=== PATIENT | female | born 1940 | race Caucasian/White ===

== ENCOUNTER 2016-08-03 22:23 | Emergency (ER) | payer OTHER, MEDICARE ==
[~2016-08-03 22:23] MED LIST: HYDROCHLOROTHIA25 M1 PO; LEVOTHYROXINE88 MCG PO; MACROBID 100 M100 MG PO; NAPROXEN375 M1 PO; PANTOPRAZOLE SO40 M1 PO; PYRIDIUM100 M1 PO; SIMVASTATIN10 M1 PO; VALSARTAN80 M1 PO
--- NOTE | 2016-08-03 23:01 | ED GI/GU/ABDOMINAL COMPLAINT ---
History of Present Illness General Chief Complaint: Abdominal Pain/Flank Pain Stated Complaint: "LLQ ABD CHRISTY CHOWDHURY" Source: patient, family Exam Limitations: no limitations Vital Signs & Intake/Output Vital Signs & Intake/Output Vital Signs Date Time Temp Pulse Resp B/P Pulse O2 O2 Flow FiO2 Ox Delivery Rate 08/04 0026 74 18 154/72 95 Room Air 08/03 2228 97.9 86 18 166/98 99 Room Air ED Intake and Output 08/04 0000 08/03 1200 Intake Total 0 Output Total Balance 0 Intake, Oral 0 Allergies Coded Allergies: NO KNOWN ALLERGIES (03/08/14) Reconcile Medications Hydrochlorothiazide 25 MG TABLET 0.5 TAB PO DAILY WATER PILL (Reported) Levothyroxine Sodium 88 MCG TABLET 1 TAB PO DAILY AC THYROID (Reported) Naproxen 375 MG TABLET.DR 1 TAB PO BID ANTI-INFLAMMATORY (Reported) Nitrofurantoin Monohyd/M-Cryst (Macrobid 100 MG Capsule) 100 MG CAPSULE 1 CAP PO BID UTI Pantoprazole Sodium 40 MG TABLET.DR 1 TAB PO DAILY GI (Reported) Phenazopyridine HCl (Pyridium) 100 MG TABLET 1 TAB PO TID UTI Please take after meals Simvastatin (Simvastatin*) 10 MG TABLET 1 TAB PO QPM CHOLESTEROL (Reported) Valsartan 80 MG TABLET 1 TAB PO DAILY HEART (Reported) Triage Note: TRIAGE; PT TO ED WITH LLQ PAIN SINCE THIS AM. STATES SHE WOKE UP WITH SEVERE DIARRHEA, USED PEPTO BISMOL AND DIARRHEA CAME BACK. STATES USED MORE AT 9PM TONIGHT. PT STATES SHE HAS HAD THE LT SIDED PAIN ALL DAY LONG. C/O +N/D, DENIES ANY VOMITING. ALSO C/O PADILLA. PT REPORTS HAVING HEARTBURN WELL. DENIES ANY CP/SOB. EKG ORDERED. Triage Nurses Notes Reviewed? yes ? N Is pt currently ? No Onset: Abrupt Duration: constant Timing: recent history Quality/Severity: sharpness, severe, stabbing Severity Numbers: 7 Location: left lower quadrant Radiation: no radiation Activities at Onset: none HPI: Patient is a 76-year-old female with a past medical history of hypertension hypothyroidism overactive bladder and chronic "stomach issues" who presents emergency room with complaints of a remote history of intermittent left lower quadrant pain however patient states last 24 hours the left lower quadrant pain has been persistent in which last night patient had multiple episodes 4 of nonbloody no melena loose watery stool diarrhea production however patient had formed stool today Patient currently complains of left lower quadrant nonradiating abdominal pain Patient is able tolerate by mouth with no change in symptoms. Patient did have steak and potatoes earlier today Patient does have a history of overactive bladder with a nonfunctioning bladder stimulator Patient has no change of urine complaints Patient denies any fever chills back pain chest pain and arm pain jaw pain nausea or vomiting. Patient states that she has a a colonoscopy performed previously with unremarkable findings by Dr. King. (ROSA GUZMÁN) Past History Travel History Traveled to [place] past 21 day No Medical History Any Pertinent Medical History? see below for history Neurological: NONE EENT: NONE Cardiovascular: hypertension, hyperlipidemia Respiratory: NONE Gastrointestinal: NONE Hepatic: NONE Renal: OVERACTIVE BLADDER Musculoskeletal: NONE Psychiatric: NONE Endocrine: NONE Blood Disorders: NONE Cancer(s): breast cancer Surgical History Surgical History: hysterectomy Psychosocial History Who do you live with Family Services at Home None What is your primary language Hebrew Tobacco Use: Never used Family History Hx Contributory? No (ROSA GUZMÁN) Review of Systems Review of Systems Constitutional: Reports: no symptoms. EENTM: Reports: no symptoms. Respiratory: Reports: no symptoms. Cardiovascular: Reports: no symptoms. GI: Reports: see HPI, abdominal pain. Genitourinary: Reports: see HPI. Musculoskeletal: Reports: no symptoms. Skin: Reports: no symptoms. Neurological/Psychological: Reports: no symptoms. Hematologic/Endocrine: Reports: no symptoms. Immunologic/Allergic: Reports: no symptoms. All Other Systems: Reviewed and Negative (ROSA GUZMÁN) Physical Exam Physical Exam General Appearance: no apparent distress, alert, comfortable Gastrointestinal: normal bowel sounds, soft, LEFT LOWER QUADRANT MODERATE POINT TENDERNESS WITH POSITIVE REBOUND TENDERNESS Comments: HEENT: Normal EENT exam, Neck: Supple, no lymphadenopathy, normal range of motion without pain or tenderness Back: Nontender, no CVA tenderness. Cardiovascular: Regular rate and rhythms no murmurs rubs or gallops, normal JVP Respiratory: Chest nontender. No respiratory distress.breath sounds clear to auscultation bilaterally Extremity: No edema, no calf tenderness to palpation, normal and equal pulses. Neuro: Alert oriented x3, motor sensory normal, Skin: No appreciable rash on exposed skin, skin is warm and dry. Psych: Mood and affect is normal, memory and judgment is normal. Core Measures ACS in differential dx? No Severe Sepsis Present: No Septic Shock Present: No (GUNNER AU,ROSA) Progress Differential Diagnosis: AAA, AMI, appendicitis, biliary colic, bowel obstruction , colon cancer, cholecystitis, diverticulitis, ectopic , endometritis, esophageal varices, gastritis, hepatitis, hernia, hemorrhoids, ischemic bowel, inflamm bowel dis, intrauterine , kidney stone, Margret-Ramirez tear, ovarian cyst, ovarian torsion, pancreatitis, PID/cervicitis, peptic ulcer, PUD/ GERD, perforated viscous, SBO, threatened AB, UTI/pyelo Plan of Care: Orders Procedure Date/time Status Add-on Test (ER Only) 08/04 0209 Active CULTURE,URINE 08/04 143 Active URINALYSIS 08/04 014 Complete LIPASE 08/03 231 Complete COMPREHENSIVE METABOLIC PANEL 08/03 231 Complete CBC WITHOUT DIFFERENTIAL 08/03 2317 Complete AMYLASE 08/03 2317 Complete EKG 08/038 Active Laboratory Tests 08/04/16 0144: Urinalysis MOD H, Urine Color STRAW, Urine Clarity CLDY H, Urine pH 6.0, Ur Specific [place] 1.015, Urine Protein TRACE H, Urine Ketones NEG, Urine Nitrite POS H, Urine Bilirubin NEG, Urine Urobilinogen 0.2, Ur Leukocyte Esterase LARGE H, Ur Microscopic SEDIMENT EXAMINED, Urine RBC 5-10 H, Urine WBC > 75 H, Ur Epithelial Cells MOD H, Urine Mucus FEW, Urine Hemoglobin SMALL H, Urine Glucose NEG 08/04/16 0000: Anion Gap 9, Estimated GFR > 60, BUN/Creatinine Ratio 25.6 H, Glucose 96, Calcium 9.4, Total Bilirubin 0.2, AST 14, ALT 27, Alkaline Phosphatase 84, Total Protein 6.7, Albumin 3.7, Globulin 3.0, Albumin/Globulin Ratio 1.2, Amylase 103, Lipase 332 H 08/03/168: CBC w Diff NO MAN DIFF REQ, RBC 2.93 L, MCV 92.6, MCH 29.7, RDW 14.3, MPV 8.4, Gran % 61.5, Lymphocytes % 27.9, Monocytes % 6.5, Eosinophils % 2.9, Basophils % 1.2, Absolute Granulocytes 3.8, Absolute Lymphocytes 1.7, Absolute Monocytes 0.4 , Absolute Eosinophils 0.2, Absolute Basophils 0.1, PUBS MCHC 32.1 L Microbiology 08/04 0144 URINE ROUT: Urine Culture - RECD 08/04/2016 12:20:39 AM reevaluation the patient, patient had no change in pain with 2 mg of morphine which 4 mg of morphine was ordered. Blood work and CT scan currently are pending. Patient had no change in pain with an total of 6 mg of morphine and which patient still requested pain medication and which currently is patient is in CT scan 6 mg of morphine again was ordered however will not be administered till after CT scan is performed and reevaluated patient. I discussed hand off with Dr. Calvillo in which CT scan and disposition is currently pending (ROSA GUZMÁN) Initial ED EKG: SINUS RHYTHM NOTICED 68 BPM WITH [employer] PACEMAKER SPIKES Prior EKG: unchanged Hand-Off Endorsed To: STEPHAN SPARKS,ZAID Swann Endorsed Time: 53 Pending: CT (ROSA GUZMÁN) Diagnostic Imaging: Viewed by Me: CT Scan. Discussed w/RAD: CT Scan. Radiology Impression: PATIENT: ERIK NIEVES PRESENT AGE: 76 PATIENT ACCOUNT NO: [id number] : 40 LOCATION: [facility] ORDERING PHYSICIAN: ROSA AU SERVICE DATE: 08/03/16 EXAM TYPE: CAT - CT ABD & PELVIS W IV CONTRAST EXAMINATION: CT ABDOMEN AND PELVIS WITH CONTRAST CLINICAL INFORMATION: Left lower quadrant pain, diarrhea, rule out diverticulitis COMPARISON: 04/21/2016 TECHNIQUE: Multidetector volumetric imaging was performed of the abdomen and pelvis before and after the IV administration of 95 mL of Optiray 320 intravenous contrast. Sagittal and coronal reformatted images were obtained on the technologist's workstation. DLP: 253.77 mGy-cm. FINDINGS: LUNG BASES: There are redemonstrated tiny left lower lobe lung nodules on image 9/87 and right lower lobe lung nodules on images 10 and 11/87. LIVER, GALLBLADDER, AND BILIARY TREE: The liver is normal in size, shape, and attenuation. No focal hepatic lesion or biliary ductal dilatation is present. The gallbladder is unremarkable with no evidence of radiopaque gallstones, gallbladder wall thickening, or obvious pericholecystic inflammatory changes. PANCREAS: Unremarkable. SPLEEN: Unremarkable. ADRENAL GLANDS: Unremarkable. KIDNEYS AND URETERS: The kidneys demonstrate lobulated contours bilaterally with areas of cortical scarring. There are redemonstrated low- density lesions in the kidneys, the larger of which are consistent with cysts while the smaller lesions are too small to characterize. No hydronephrosis or obstructing calculi bilaterally. BLADDER: Unremarkable. GASTROINTESTINAL TRACT: A small hiatal hernia is noted. There is colonic diverticulosis without additional findings for diverticulitis. No evidence of bowel obstruction. No abnormal bowel wall thickening is seen. The appendix is unremarkable. ABDOMINAL WALL: A stimulator device is present in the left gluteal subcutaneous tissues, with lead extending to the sacrum. LYMPH NODES: Normal. VASCULAR: There is atherosclerotic calcification along the aorta. PELVIC VISCERA: Patient appears status post hysterectomy. A pessary is noted. OSSEOUS STRUCTURES: Degenerative changes are noted in the spine. IMPRESSION: 1. No acute intra-abdominal findings. Colonic diverticulosis without findings for diverticulitis. 2. Small hiatal hernia. 3. Additional chronic findings as described above. DICTATED BY: CHAD DAVID MD DATE/TIME DICTATED:08/04/16116 TERRAZZO LAYER:PRAVIN DATE/TIME TRANSCRIBED:08/04/16116 CONFIDENTIAL, DO NOT COPY WITHOUT APPROPRIATE AUTHORIZATION. <Electronically signed in Other Vendor System> SIGNED BY: CHAD DVAID MD 08/04/16 0128 (STEPHAN SPARKS,ZAID Swann) Departure Departure Condition: Stable Clinical Impression Primary Impression: Abdominal pain Referrals: Monica BORREGO MD (PCP/Family) Departure Forms: Customer Survey General Discharge Information (ROSA GUZMÁN) Departure Disposition: HOME OR SELF CARE PA/IT BUSINESS PROCESS ARCHITECT Co-Sign Statement Statement: ED Attending supervision documentation- [X] I saw and evaluated the patient. I have also reviewed all the pertinent lab results and diagnostic results. I agree with the findings and the plan of care as documented in the PA's/IT BUSINESS PROCESS ARCHITECT's documentation. [X] I have reviewed the ED Record and agree with the PA's/IT BUSINESS PROCESS ARCHITECT's documentation. [] Additions or exceptions (if any) to the PAs/IT BUSINESS PROCESS ARCHITECT's note and plan are summarized below: [] (STEPHAN SPARKS,ZAID Swann)
[2016-08-03 23:42] LABS: ABSOLUTE BASOPHIL COUNT 0.1 /CUMM (0.0-0.2); ABSOLUTE EOSINOPHIL COUNT 0.2 /CUMM (0.0-0.7); ABSOLUTE GRANULOCYTE CT 3.8 /CUMM (1.4-6.5); ABSOLUTE LYMPH COUNT 1.7 /CUMM (1.2-3.4); ABSOLUTE MONOCYTE COUNT 0.4 /CUMM (0.10-0.60); BASOPHIL % 1.2 % (0.0-2.0); EOSINOPHIL % 2.9 % (0-5); GRANULOCYTE % 61.5 % (42.2-75.2); HEMATOCRIT 27.1 % (37-47); MEAN CORPUSCULAR HGB 29.7 PG (27.0-31.0); MEAN CORPUSCULAR HGB CONC 32.1 G/DL (33.0-37.0); MEAN CORPUSCULAR VOLUME 92.6 FL (81.0-99.0); MEAN PLATELET VOLUME 8.4 FL (7.4-10.4); PLATELET COUNT 361 /CUMM (130-400); RBC DISTRIBUTION WIDTH 14.3 % (11.5-14.5); RED BLOOD CELL CT 2.93 /CUMM (4.20-5.40); WHITE BLOOD CELL COUNT 6.1 /CUMM (4.8-10.8)
[2016-08-04 00:26] VITALS: BP 154/72
--- NOTE | 2016-08-04 01:28 | CT SCAN REPORT ---
EXAMINATION: CT ABDOMEN AND PELVIS WITH CONTRAST CLINICAL INFORMATION: Left lower quadrant pain, diarrhea, rule out diverticulitis COMPARISON: 04/21/2016 TECHNIQUE: Multidetector volumetric imaging was performed of the abdomen and pelvis before and after the IV administration of 95 mL of Optiray 320 intravenous contrast. Sagittal and coronal reformatted images were obtained on the technologist's workstation. DLP: 253.77 mGy-cm. FINDINGS: LUNG BASES: There are redemonstrated tiny left lower lobe lung nodules on image 9/87 and right lower lobe lung nodules on images 10 and 11/87. LIVER, GALLBLADDER, AND BILIARY TREE: The liver is normal in size, shape, and attenuation. No focal hepatic lesion or biliary ductal dilatation is present. The gallbladder is unremarkable with no evidence of radiopaque gallstones, gallbladder wall thickening, or obvious pericholecystic inflammatory changes. PANCREAS: Unremarkable. SPLEEN: Unremarkable. ADRENAL GLANDS: Unremarkable. KIDNEYS AND URETERS: The kidneys demonstrate lobulated contours bilaterally with areas of cortical scarring. There are redemonstrated low-density lesions in the kidneys, the larger of which are consistent with cysts while the smaller lesions are too small to characterize. No hydronephrosis or obstructing calculi bilaterally. BLADDER: Unremarkable. GASTROINTESTINAL TRACT: A small hiatal hernia is noted. There is colonic diverticulosis without additional findings for diverticulitis. No evidence of bowel obstruction. No abnormal bowel wall thickening is seen. The appendix is unremarkable. ABDOMINAL WALL: A stimulator device is present in the left gluteal subcutaneous tissues, with lead extending to the sacrum. LYMPH NODES: Normal. VASCULAR: There is atherosclerotic calcification along the aorta. PELVIC VISCERA: Patient appears status post hysterectomy. A pessary is noted. OSSEOUS STRUCTURES: Degenerative changes are noted in the spine. IMPRESSION: 1. No acute intra-abdominal findings. Colonic diverticulosis without findings for diverticulitis. 2. Small hiatal hernia. 3. Additional chronic findings as described above.
== END 2016-08-04 02:18 ==
LOC: ERH 22:23
PROVIDERS: Physician Assistant
DX: R10.32 Left lower quadrant pain (principal)
CPT/HCPCS: 74177; 81001; 87086; 93005; 93010; 96374; 96376